=== PATIENT | male | born 1940 | race Caucasian/White ===

== ENCOUNTER 2016-09-27 12:49 | Emergency (ER) | payer OTHER, MEDICARE ==
[2016-09-27 12:52] VITALS: BP 148/63; BMI 36.8
[2016-09-27] MEDS ORDERED: XYLOCAINE 1 % (PLAIN) ONE (13:04)
--- NOTE | 2016-09-27 13:29 | RAD ---
Three views of the left hand Indication: Laceration to 5th digit Findings: No acute fracture or dislocation within the left hand. There is skin irregularity along th e under surface of the little finger suspicious for small laceration. No retained radiopaque foreign body. There is moderate multilevel interphalangeal joint index and middle finger MCP joint, thumb MCP and CMC joint degenerative change. Additionally there is degenerative change of the distal radial ulnar joint. No localizing soft tissue swelling within the remaining left hand. Impression: 1.Suspected laceration along the volar surface of the little finger distal phalanx. 2.No acute fracture, dislocation or retained radiopaque foreign body. 3.Degenerative changes throughout the left hand as discussed above. Reported By:
[2016-09-27] MEDS ORDERED: ADACEL TDaP IM ONE ×2 (13:43→13:45)
[2016-09-27] MEDS ORDERED: BACTROBAN OINT TOP ONE (13:43)
[2016-09-27] MEDS ORDERED: BACITRACIN ZINC ONE (13:45)
--- NOTE | 2016-09-27 13:50 | DR.LACERAT ---
HPI - Time Seen Time seen: 13:30 - Primary Care Physician Primary Care Physician: RUPERT - Complaints Chief Complaint Doctors Comments: Patient was cleaning tree limbs and a splinter lacerated left 5th finger Chief Complaint:: PT. CUT HIS 5TH DIGIT ON LEFT HAND WITH A WOOD SPLITTER THIS MORNING. - Source History Provided: Patient - Mode of Arrival Mode of Arrival: Ambulatory - Timing Onset of Chief Complaint: 09/27/16 PMH - PMH Past Medical History: Yes Past Medical History: Dyslipidemia, Gout, Hypertension Past Surgical History: Yes Surgical History: Ortho Surgery - Family History History of Family Medical Conditions: No - Social History Does patient currently use any type of tobacco product: No Have you used tobacco products in the last 12 months: No Type of Tobacco Use: None Does any household member use tobacco: No Alcohol Use: None Do you use any recreational Drugs:: No Lives With: Spouse Lives Where: Home - infectious screening In the last 2 months have you had wt loss of >10#?: NO Have you had fever, night sweats or hemotysis?: No Have you traveled outside the country in the last 6 months?: No Isolation: Standard ROS - Review of Systems Eyes: No Symptoms Reported ENTM: No Symptoms Reported Respiratoy: No Symptoms Reported Cardiovascular: No Symptoms Reported Gastrointestinal/Abdominal: No Symptoms Reported Genitourinary: No Symptoms Reported Neurological: No Symptoms Reported Musculoskeletal: No Symptoms Reported Integumentary: Wound (5th digit of left hand) Hematologic/Lymphatic: No Symptoms Reported Endocrine: No Symptoms Reported Psychiatric: No Symptoms Reported PE - Vital Signs Vitals: Temperature 98.2 F Pulse Rate 70 Respiratory Rate 16 Blood Pressure [Right Arm] 152/68 Blood Pressure [Left Arm] 147/90 Blood Pressure 148/63 O2 Sat by Pulse Oximetry 98 - General Limitations: No Limitations General Appearance: Alert, In No Apparent Distress - Head Head Exam: Normal Inspection, Atraumatic - Eyes Eye exam: Normal Appearance, PERRL, EOMI - ENT ENT Exam: Normal Exam, Normal Oropharynx - Neck Neck Exam: Normal Inspection, Full ROM - Chest Chest Inspection: Normal Inspection, Symmetric Chest Wall Rise - Respiratory Respiratory Exam: Normal Lung Sounds Bilat Respiratory Exam: Bilateral Clear to Auscultation - Cardiovascular Cardiovascular Exam: Regular Rate - Abdominal Exam Abdominal Exam: Normal Inspection Abdominal Tenderness: negative: RUQ, RLQ, LUQ, LLQ, Epigastrium, Suprapubic, Diffuse, Mild, Moderate, Severe, Other - Extremities Extremities Exam: Other (3 cm laceration of 5th digit medially) - Back Back Exam: Normal Inspection - Neurologic Neurological Exam: Alert - Psychiatric Psychiatric Exam: Normal Affect - Skin Skin Exam: Warm, Dry, Other (except laceration of 5 th digit of left hand) Course - Reevaluation 1st: Improved ROR - XRAY XRAY Interpreted by: Radiologist (No fracture, DJD of left hand) Procedures - Laceration/Wound Repair Left 4th Digit Wound Length (cm): 3 Wound's Depth, Shape: Superficial, Irregular Wound Explored: clean Betadine Prep?: Yes Anesthesia: 1% Lidocaine (5cc) Wound Debrided: minimal Wound Repaired With: sutures Suture Size/Type: 4:0, [place] Number of Sutures: 11 - Diagnosis Discharge Problem: Laceration of finger of left hand Qualifiers: Encounter type: initial encounter Qualified Code(s): S61.219A - Laceration without foreign body of unspecified finger without damage to nail, initial encounter - Discharge Plan Condition: Stable - Follow ups/Referrals Follow ups/Referrals: LATRICE EMERY [Primary Care Provider] - 3 days - Instructions
== END 2016-09-27 14:06 | disposition home or self-care (01) ==
LOC: ER 13:19
PROC: 0XQK0ZZ Repair Left Hand, Open Approach (ICD-10-PCS; principal; 2016-09-27)
DX: S61.219A Laceration without foreign body of unspecified finger without damage to nail, initial encounter (principal); W45.8XXA Other foreign body or object entering through skin, initial encounter; Y92.9 Unspecified place or not applicable
CPT/HCPCS: 12002; 73130; 90471; 99282; 99283; J2001